=== PATIENT | female | born 1960 | race Caucasian/White ===

== ENCOUNTER 2019-10-17 13:12 | Observation (INO) | payer OTHER ==
[~2019-10-17] VITALS: Ht 160 cm; Wt 45.2 kg
[2019-10-17 14:07] LABS: BASOPHILS ABSOLUTE AUTO 0.02 K/mm3 (0.00-0.23); BASOPHILS PERCENT AUTO 0 % (0-2); EOSINOPHILS ABSOLUTE AUTO 0.23 K/mm3 (0.00-0.68); EOSINOPHILS PERCENT AUTO 3 % (0-6); Hematocrit 19.2 % (33.0-51.0); IMMATURE GRAN PERCENT AUTO 1 % (0-1); LYMPHOCYTES ABSOLUTE AUTO 2.76 K/mm3 (0.84-5.20); LYMPHOCYTES PERCENT AUTO 31 % (21-46); MONOCYTES ABSOLUTE AUTO 1.02 K/mm3 (0.16-1.47); MONOCYTES PERCENT AUTO 12 % (4-13); Mean Corpuscular HGB 18.6 pg (26.0-34.0); Mean Corpuscular Volume 74 fL (80-100); Mean Platelet Volume 9.5 fL (9.1-12.4); NEUTROPHILS PERCENT AUTO 53 % (41-73); NRBC Auto 2.3 /100 WBC (0.0-0.2); Platelet Count 808 K/mm3 (150-400); RDW Coefficient Variation 30.4 % (11.7-14.2); RDW Standard Deviation 71.7 fL (35.1-46.3); Red Blood Cell Count 2.58 M/mm3 (3.80-5.20); White Blood Cell Count 8.83 K/mm3 (4.00-11.30)
[2019-10-17 14:25] LABS: Alanine Aminotransfer (ALT/SGP 23 U/L (12-78); Albumin, Blood 3.5 g/dL (3.4-5.0); Alk Phos 65 U/L (50-136); Anion Gap 6 mmol/L (6-16); Aspartate Aminotrans (AST/SGOT 17 U/L (12-37); Bilirubin, Total 0.2 mg/dL (0.1-1.0); Blood Urea Nitrogen 18 mg/dL (8-24); Bun/Creatinine Ratio 27.1 (12.0-20.0); CO2, Blood 26 mmol/L (21-32); Calcium, Blood 8.5 mg/dL (8.5-10.1); Chloride, Blood 108 mmol/L (98-108); Creatinine, Blood 0.66 mg/dL (0.40-1.00); Globulin, Blood 3.6 g/dL (2.2-4.0); Glomerular Filtration Rate >60 (60-); Glucose, Blood 115 mg/dL (70-99); Potassium, Blood 3.9 mmol/L (3.5-5.5); Sodium, Blood 140 mmol/L (136-145); Total Protein, Blood 7.1 g/dL (6.4-8.2)
[2019-10-17 14:30] LABS: Hemoglobin 4.8 g/dL (11.5-16.0)
[2019-10-17] MEDS ORDERED: Synthroid200 MCG PO (15:32)
[2019-10-17] MEDS ORDERED: DULOXETINE HCL60 M1 PO (15:32)
[2019-10-17] MEDS ORDERED: Neurontin800 MG PO (15:33)
[2019-10-17] MEDS ORDERED: MORPHINE SULFAT15 M1 PO (15:33)
[2019-10-17] MEDS ORDERED: METAXALONE800 M1 PO (15:34)
[2019-10-17] MEDS ORDERED: OMEP20ER PO (15:34)
[2019-10-17] MEDS ORDERED: REMERON30 MG PO (15:34)
--- NOTE | 2019-10-17 18:28 | NUR ---
ASSUME CARE: PT ARRIVED FROM [facility] ([facility] VIA STRETCHER, REPORT RECEIVED FROM JANEEN RN. PT WAS ABLE TO STAND TRANSFER TO BED. PT IS HERE FOR ACUTE BLOOD LOSS ANEMIA HGB AT 4.8, CURRENTLY TREANSFUSING 2ND PRBC. HRR NSR ON THE 80'S, BP SYSTOLIC 140'S, SATS ABOVE 97% ON 1L OF O2, AFEBRILE. PT IS ALERT AND ORIENTED X4. DENIES CHEST PAIN, LUNGS INSPIRATORU COARSE DIMINISHED ON THE BASES PT WITH HX OF COPD, PT REPORTS SOB WITH EXERTION AT HOME. GI WAS CONSULTED PLAN TO DO ENDOSCOPY IN AM, PT ON CLEAR LIQUID DIET. ALSO DISCUSSED CODE STATUS WITH PT AND DAUGHTER PALLIATIVE CARE CONSULT ORDERED, DAUGHTER AGREEABLE WITH THIS PLAN. PT CURRENTLY RESTING IN BED, CALL LIGHTS WITHIN REACH WILL MONITOR
[2019-10-17 19:11] LABS: Hematocrit 28.2 % (33.0-51.0); Hemoglobin 7.8 g/dL (11.5-16.0)
[2019-10-18 04:15] LABS: Hematocrit 30.6 % (33.0-51.0); Hemoglobin 8.4 g/dL (11.5-16.0); Mean Corpuscular HGB 20.7 pg (26.0-34.0); Mean Corpuscular HGB Conc 27.5 g/dL (31.5-36.5); Mean Corpuscular Volume 76 fL (80-100); Mean Platelet Volume 9.1 fL (9.1-12.4); NRBC ABSOLUTE 0.15 K/mm3 (0.00-0.02); NRBC Auto 1.7 /100 WBC (0.0-0.2); Platelet Count 871 K/mm3 (150-400); RDW Coefficient Variation 27.2 % (11.7-14.2); RDW Standard Deviation 66.4 fL (35.1-46.3); Red Blood Cell Count 4.05 M/mm3 (3.80-5.20); White Blood Cell Count 9.06 K/mm3 (4.00-11.30)
[2019-10-18 04:41] LABS: Anion Gap 3 mmol/L (6-16); Blood Urea Nitrogen 11 mg/dL (8-24); Bun/Creatinine Ratio 17.6 (12.0-20.0); CO2, Blood 29 mmol/L (21-32); Calcium, Blood 8.6 mg/dL (8.5-10.1); Chloride, Blood 109 mmol/L (98-108); Creatinine, Blood 0.63 mg/dL (0.40-1.00); Glomerular Filtration Rate >60 (60-); Glucose, Blood 95 mg/dL (70-99); Potassium, Blood 4.2 mmol/L (3.5-5.5); Sodium, Blood 141 mmol/L (136-145)
--- NOTE | 2019-10-18 06:24 | NUR ---
SHIFT SUMMARY Dr Saenz at bedside last night with updated plan of care. Pt to be NPO at 0900 for Upper and Lower scope. CL until 0900. Golytely started and pt with bowel movements throughout night - clearing in color. Pt is ind and alert and oriented. VSS. No isatu blood in stool. pt able to express needs, no acute changes from intial shift assessment, lungs coarse but clearing. no changes in oxygen demand. Will continue to monitor.
--- NOTE | 2019-10-18 09:53 | NUR ---
PT IS SUPPOSED TO GET ENDOSCOPY AND COLONOSCOPY DONE TODAY. PT WAS ON CLEAR LIQUID DIET SINCE YESTERDAY FOR THE PROCEDURE HOWEVER PT HAD RECEIVED A FULL LIQUID DIET TRAY THIS MORNING PT WAS INSTRUCTED THAT SHE CAN HAVE BREAKFAST BUT NOTHING TO EAT AFTER 0900AM ORDERED FOR THE PROCEDURE. THIS RN CALLED DR ALFARO ABOUT THIS ISSUE PT WAS SUPPOSED TO BE ON CLEAR LIQUID, PROCEDURE HAS TO BE CANCELLED AND RESCHEDULED TOMORROW. PT WAS UPSET REQUESTING TO JUST GO HOME AND HAVE IT DONE OUT PATIENT. THIS ISSUE WAS DISCUSSED WITH THE CHARGE NURSE NOTED THAT THERE WERE [facility] ISSUE GOING REGARDING THIS MATTER. DR WELLS WAS ALSO MADE AWARE FROM HIS STANDPOINT PT IS STABLE TO GO HOME AND GET THE PROCEDURE DONE OUTPATIENT IF DR ALFARO IS AGREEABLE. DR ALFARO WAS ALSO INFORMED ALSO AGREEABLE PT IS NOT HAVING ANY ACTIVE BLEEDING AND H&H IS STABLE AND THAT PT CAN DO THE PROCEDURE OUTPATIENT.
--- NOTE | 2019-10-18 12:34 | NUR ---
PT DISCHARGED TODAY DECIDED TO GET ENDO/COLONOSCOPY DONE OUTPATIENT. VITALS HAS BEEN STABLE HRR NSR 80'S, BP SYSTOLIC 130'S, SATS ABOVE 95% ON ROOMAIR, AFEBRILE. LAST HGB WAS 8.4 PT TO FOLLOW UP WITH PCP WITHIN A WEEK AND GET CBC DONE WELL. PT TO CALL DR. ALFARO'S OFFICE FOR PROCEDURE ARRANGEMENT. DISCHARGE MEDICATION AND INSTRUCTION DISCLOSED WITH PT, PT VERBALIZED UNDERSTANDING. ALL BELONGINGS SENT WITH PT, PT ACCOMPANIED BY FORMATION FRACTURING OPERATOR AMBULATED FOR TRANSPORT
[2019-10-31] MEDS ORDERED: BREO ELLIPTA 21 EAC1 (09:27)
[2019-10-31] MEDS ORDERED: IPRAT-ALBUT 0.5-3 ML (09:27)
[2019-10-31] MEDS ORDERED: ASMANEX HFA13 G6 (09:28)
== END 2019-10-18 12:19 | disposition home or self-care (01) ==
LOC: ER 13:12 → PCU 13:13
PROVIDERS: Emergency Medicine; ADMIT Internal Medicine
DX: D62 Acute posthemorrhagic anemia (principal); E03.9 Hypothyroidism, unspecified; R63.6 Underweight; F11.90 Opioid use, unspecified, uncomplicated; R59.0 Localized enlarged lymph nodes; J47.9 Bronchiectasis, uncomplicated; J43.9 Emphysema, unspecified; K44.9 Diaphragmatic hernia without obstruction or gangrene; R10.13 Epigastric pain; K21.9 Gastro-esophageal reflux disease without esophagitis; R19.5 Other fecal abnormalities; G89.4 Chronic pain syndrome; Z87.891 Personal history of nicotine dependence; Z79.899 Other long term (current) drug therapy; Z68.1 Body mass index [BMI] 19.9 or less, adult
CPT/HCPCS: 36415; 36430; 71250; 80048; 80053; 82272; 85014; 85018; 85025; 85027; 86850; 86900; 86901; 86923; 93005; 93010; 94640; 94664; 94760; 96374; 96375; 96376; 99285-25; C9113; G0378; J7030; P9016

== ENCOUNTER 2020-01-23 09:46 | Day surgery (SDC) | payer OTHER ==
[~2020-01-23] VITALS: Ht 160 cm; Wt 45.8 kg
[~2020-01-23 09:46] MED LIST: ASMANEX HFA13 G6; BREO ELLIPTA 21 EAC1; DULOXETINE HCL60 M1 PO; IPRAT-ALBUT 0.5-3 ML; METAXALONE800 M1 PO; MORPHINE SULFAT15 M1 PO; Neurontin800 MG PO; OMEP20ER PO; REMERON30 MG PO; Synthroid200 MCG PO
== END 2020-01-23 11:33 | disposition home or self-care (01) ==
LOC: ORSCSDS 09:46
PROVIDERS: Internal Medicine Gastroenterology
PROC: 0DB78ZX Excision of Stomach, Pylorus, Via Natural or Artificial Opening Endoscopic, Diagnostic (ICD-10-PCS; principal; 2020-01-23 11:00)
DX: K25.9 Gastric ulcer, unspecified as acute or chronic, without hemorrhage or perforation (principal); K44.9 Diaphragmatic hernia without obstruction or gangrene; J44.9 Chronic obstructive pulmonary disease, unspecified; Z87.891 Personal history of nicotine dependence; Z79.899 Other long term (current) drug therapy; M79.7 Fibromyalgia
CPT/HCPCS: 88305; 88342; J2704; J7120

== ENCOUNTER → 2021-01-02 | Outpatient (CLI) | payer BC | END | disposition home or self-care (01) | LOC: LAB SHORT 15:06 → LAB 15:06 | DX: J47.9 Bronchiectasis, uncomplicated (principal) | CPT/HCPCS: 87015; 87116; 87206 ==

== ENCOUNTER → 2021-04-20 | Outpatient (CLI) | payer BC | END | disposition home or self-care (01) | LOC: LAB SHORT 11:00 → LAB 11:00 | DX: J47.9 Bronchiectasis, uncomplicated (principal) | CPT/HCPCS: 87015; 87116; 87206 ==

== ENCOUNTER → 2021-05-27 | Outpatient (CLI) | payer BC | END | disposition home or self-care (01) | LOC: LAB SHORT 14:39 → LAB 14:39 | DX: L08.9 Local infection of the skin and subcutaneous tissue, unspecified (principal) | CPT/HCPCS: 87070; 87075; 87205 ==

== ENCOUNTER → 2021-05-29 | Outpatient (CLI) | payer BC ==
[2021-05-29 10:15] LABS: BASOPHILS ABSOLUTE AUTO 0.05 K/mm3 (0.00-0.23); BASOPHILS PERCENT AUTO 0 % (0-2); EOSINOPHILS ABSOLUTE AUTO 0.24 K/mm3 (0.00-0.68); EOSINOPHILS PERCENT AUTO 1 % (0-6); Hematocrit 44.5 % (33.0-51.0); Hemoglobin 14.3 g/dL (11.5-16.0); IMMATURE GRAN ABSOLUTE AUTO 0.07 K/mm3 (0.00-0.10); IMMATURE GRAN PERCENT AUTO 0 % (0-1); LYMPHOCYTES ABSOLUTE AUTO 1.68 K/mm3 (0.84-5.20); LYMPHOCYTES PERCENT AUTO 10 % (21-46); MONOCYTES PERCENT AUTO 6 % (4-13); Mean Corpuscular HGB 33.7 pg (26.0-34.0); Mean Corpuscular HGB Conc 32.1 g/dL (31.5-36.5); Mean Corpuscular Volume 105 fL (80-100); Mean Platelet Volume 9.2 fL (9.1-12.4); NEUTROPHILS ABSOLUTE AUTO 14.11 K/mm3 (1.96-9.15); NEUTROPHILS PERCENT AUTO 82 % (41-73); Platelet Count 468 K/mm3 (150-400); RDW Coefficient Variation 12.1 % (11.7-14.2); RDW Standard Deviation 47.2 fL (35.1-46.3); Red Blood Cell Count 4.24 M/mm3 (3.80-5.20); White Blood Cell Count 17.25 K/mm3 (4.00-11.30)
[2021-05-29 10:23] LABS: Alanine Aminotransfer (ALT/SGP 33 U/L (12-78); Albumin, Blood 3.5 g/dL (3.4-5.0); Albumin/Globulin Ratio 0.8 (0.8-1.8); Alk Phos 119 U/L (40-126); Anion Gap 10 mmol/L (6-16); Aspartate Aminotrans (AST/SGOT 26 U/L (12-37); Bilirubin, Total 0.2 mg/dL (0.1-1.0); Blood Urea Nitrogen 22 mg/dL (8-24); Bun/Creatinine Ratio 39.3 (12.0-20.0); CO2, Blood 30 mmol/L (21-32); Calcium, Blood 9.6 mg/dL (8.5-10.1); Chloride, Blood 99 mmol/L (98-108); Creatinine, Blood 0.56 mg/dL (0.40-1.00); Globulin, Blood 4.6 g/dL (2.2-4.0); Glomerular Filtration Rate >60 (60-); Glucose, Blood 110 mg/dL (70-99); Potassium, Blood 4.5 mmol/L (3.5-5.5); Sodium, Blood 139 mmol/L (136-145); Total Protein, Blood 8.1 g/dL (6.4-8.2)
== END ==
LOC: LAB SHORT 10:09 → LAB 10:09
PROVIDERS: Physician Assistant
DX: L08.9 Local infection of the skin and subcutaneous tissue, unspecified (principal)
CPT/HCPCS: 80053; 85025

== ENCOUNTER 2021-06-15 01:21 | Day surgery (SDC) | payer BC | END 2021-06-15 23:06 | disposition home or self-care (01) | LOC: WOUND 01:21 | DX: L03.114 Cellulitis of left upper limb (principal); Z87.891 Personal history of nicotine dependence | CPT/HCPCS: A9270; G0463 ==

== ENCOUNTER 2021-06-22 00:56 | Day surgery (SDC) | payer BC | END 2021-06-22 23:07 | disposition home or self-care (01) | LOC: WOUND 00:56 | DX: L03.012 Cellulitis of left finger (principal) | CPT/HCPCS: G0463 ==

== ENCOUNTER 2021-07-06 01:51 | Day surgery (SDC) | payer BC | END 2021-07-06 22:43 | disposition home or self-care (01) | LOC: WOUND 01:51 | DX: L03.012 Cellulitis of left finger (principal) | CPT/HCPCS: G0463 ==

== ENCOUNTER 2021-11-10 14:22 | Day surgery (SDC) | payer BC ==
[~2021-11-10] VITALS: Ht 157.5 cm; Wt 44.8 kg
[2021-11-10] MEDS ORDERED: SUCR1 (14:43)
--- NOTE | 2021-11-10 16:05 | NUR ---
11/10/21 6131 Mercedes Whitney PT. VERBALIZES USING O2 NEEDED AT HOME. PT. USES NOC O2. PT. VERBALIZES USING HER INHALER & NEBULIZER TODAY.
--- NOTE | 2021-11-10 16:37 | NUR ---
11/10/21 1637 Mercedes Whitney BALLOON DIALATION TO 18MM & 20MM.
== END 2021-11-10 17:30 | disposition home or self-care (01) ==
LOC: ORSCSDS 14:22
PROVIDERS: Internal Medicine Gastroenterology
PROC: 0D758ZZ Dilation of Esophagus, Via Natural or Artificial Opening Endoscopic (ICD-10-PCS; principal; 2021-11-10 15:15)
DX: R13.10 Dysphagia, unspecified (principal); D50.9 Iron deficiency anemia, unspecified; K22.2 Esophageal obstruction; K44.9 Diaphragmatic hernia without obstruction or gangrene; I10 Essential (primary) hypertension; J44.9 Chronic obstructive pulmonary disease, unspecified; Z87.891 Personal history of nicotine dependence; K21.9 Gastro-esophageal reflux disease without esophagitis; E03.9 Hypothyroidism, unspecified; Z99.81 Dependence on supplemental oxygen; Z79.899 Other long term (current) drug therapy
CPT/HCPCS: C1726; J0330; J0461; J2405; J2704; J7120

== ENCOUNTER → 2022-01-04 | Outpatient (CLI) | payer BC ==
[~2022-01-04] MED LIST changes: +SUCR1
== END ==
LOC: LAB 10:49 → LAB SHORT 10:49
DX: J47.9 Bronchiectasis, uncomplicated (principal)
CPT/HCPCS: 87015; 87116; 87206

== ENCOUNTER → 2022-01-22 | Outpatient (CLI) | payer BC | END | disposition home or self-care (01) | LOC: LAB SHORT 15:05 → LAB 15:05 | DX: J47.9 Bronchiectasis, uncomplicated (principal) | CPT/HCPCS: 87015; 87116; 87206 ==

== ENCOUNTER → 2022-05-10 | Outpatient (CLI) | payer BC ==
[~2022-05-10] MED LIST changes: +MIRT30 PO; -REMERON30 MG PO
== END ==
LOC: LAB SHORT 13:30 → LAB 13:30
DX: A43.0 Pulmonary nocardiosis (principal)
CPT/HCPCS: 87015; 87116; 87206

== ENCOUNTER → 2022-05-17 | Outpatient (CLI) | payer BC ==
[~2022-05-17] MED LIST changes: -MIRT30 PO; +REMERON30 MG PO
== END | disposition home or self-care (01) ==
LOC: LAB SHORT 14:15 → LAB 14:15
DX: A43.0 Pulmonary nocardiosis (principal); J47.9 Bronchiectasis, uncomplicated
CPT/HCPCS: 87070; 87077; 87186; 87205

== ENCOUNTER 2022-06-11 01:44 | Day surgery (SDC) | payer BC ==
[~2022-06-11 01:44] MED LIST changes: +MIRT30 PO; -REMERON30 MG PO
== END 2022-06-11 14:10 | disposition home or self-care (01) ==
LOC: ATC 01:44
DX: Z45.2 Encounter for adjustment and management of vascular access device (principal); A49.8 Other bacterial infections of unspecified site
CPT/HCPCS: 36569; C1751

== ENCOUNTER → 2023-02-07 | Outpatient (CLI) | payer BC | LOC: LAB SHORT 13:41 → LAB 13:41 | DX: J47.9 Bronchiectasis, uncomplicated (principal) | CPT/HCPCS: 87070; 87077; 87186; 87205 ==

== ENCOUNTER 2023-05-19 10:12 | Day surgery (SDC) | payer MEDICARE ==
[2023-05-19 15:45] VITALS: BP 149/95
== END 2023-05-19 16:40 | disposition home or self-care (01) ==
LOC: ATC 10:12
DX: J15.1 Pneumonia due to Pseudomonas (principal); J44.9 Chronic obstructive pulmonary disease, unspecified; Z79.899 Other long term (current) drug therapy
CPT/HCPCS: 36569; C1751

== ENCOUNTER 2023-07-15 06:20 | Observation (INO) | payer MEDICARE ==
[2023-07-15] VITALS (19 sets, daily range): BP systolic 123–141; BP diastolic 72–96
[~2023-07-15] VITALS: Ht 160 cm; Wt 46.9 kg
[~2023-07-15 06:20] MED LIST changes: -BREO ELLIPTA 21 EAC1; +BREO ELLIPTA 21 EAC1 INH; +BUDESONIDE0.5 MG/2 M INH; +DEXTROSE IV; -IPRAT-ALBUT 0.5-3 ML; +IPRAT-ALBUT 0.5-3 ML NEB; +LEVSOD100 PO; +Lactated Ringer's 1,000 ML IV SCH; +OXYGEN; -Synthroid200 MCG PO
[2023-07-15] MEDS ORDERED: TRAZ50 PO (06:40)
[2023-07-15] MEDS ORDERED: TOBRAMYCIN300 MG/10 INH (06:45)
[2023-07-15] MEDS ORDERED: Midazolam HCl 1MG / ML 2ML Vial IV ONE (07:15)
[2023-07-15] MEDS ORDERED: Ipratropium/Albuterol SulF 2.5-0.5MG/3 ML Amp INH ONE (07:15)
[2023-07-15] MEDS ORDERED: Bupivacaine 0.5% HCl 5 MG/ML 30MLVIAL ONE (07:21)
[2023-07-15] MEDS ORDERED: Ketorolac Tromethamine 30mg Vial ONE (07:21)
[2023-07-15] MEDS ORDERED: propofoL 20 ML IV ONE (07:21)
[2023-07-15] MEDS ORDERED: FentaNYL Citrate 50 MCG/ML 2 ML Injection ONE ×3 (07:21→10:21)
[2023-07-15] MEDS ORDERED: Dexamethasone Sod Phos 10 MG/ML 1ML VIAL ONE (07:21)
[2023-07-15] MEDS ORDERED: Ondansetron HCl 2 MG / ML 2ML Vial ONE (07:21)
[2023-07-15] MEDS ORDERED: Rocuronium Bromide 10 MG/ML 5ML Injection IV ONE ×2 (07:21→08:31)
[2023-07-15] MEDS ORDERED: CeFAZolin Sodium 2,000 MG in NS 100 ML IV SCH (07:25)
[2023-07-15] MEDS ORDERED: Labetalol HCL 5 MG/ML 4ML Injection (Single Dose) ONE (08:07)
[2023-07-15] MEDS ORDERED: Sugammadex Sodium 200 MG/2ML SDV (100 MG/ML) ONE (09:40)
[2023-07-15] MEDS ORDERED: Albuterol 2.5 MG/3 ML VIAL ONE ×2 (09:55→10:17)
[2023-07-15] MEDS ORDERED: HYDROmorphone HCl/Pf 1MG SYR IV PRN (10:20)
[2023-07-15] MEDS ORDERED: Magnesium Hydroxide Conc 10 ML UDC PO PRN (10:20)
[2023-07-15] MEDS ORDERED: Acetaminophen 325 MG TABLET PO PRN (10:25)
[2023-07-15] MEDS ORDERED: Ondansetron HCl 2 MG / ML 2ML Vial IV PRN (10:25)
[2023-07-15] MEDS ORDERED: Lactated Ringer's 1,000 ML IV SCH (10:25)
[2023-07-15] MEDS ORDERED: OxyCODONE HCL 5 MG TAB PO PRN (10:25)
[2023-07-15] MEDS ORDERED: Morphine Sulfate IR 15 MG Tab PO PRN (15:05)
[2023-07-15] MEDS ORDERED: Budesonide 0.5 MG/2 ML RESP INH SCH (15:10)
[2023-07-15] MEDS ORDERED: TRAZ100 PO (15:23)
[2023-07-15] MEDS ORDERED: Albuterol 2.5 MG/3 ML VIAL INH PRN (17:20)
--- NOTE | 2023-07-15 17:57 | NUR ---
SHIFT SUMMARY PT TO FLOOR POST KRUPA FUNDOPLICATION. PT IS UP AND VOIDING SPONTANEOUSLEY, DENIES PASSING FLATUS. PT ON DROPLET ISOLATION FOR BACTERIA IN SPUTUM AND MULTI DRUG RESITANT BACTERIA. ON 2-3L NASAL CANNULA, BASELINE, SATS REMAIN ABOVE 92%. LAP SITES C/D/I & OPEN TO AIR. VSS AT BASELINE. MEDICATED FOR PAIN PER EMAR, TOLERATING WELL. CALL LIGHT IN REACH.
[2023-07-15] MEDS ORDERED: Sennosides 8.6 MG Tab PO SCH (21:00)
[2023-07-15] MEDS ORDERED: Gabapentin 400 MG Cap PO SCH (21:00)
[2023-07-15] MEDS ORDERED: Docusate Sodium 100 MG Cap PO SCH (21:00)
[2023-07-15] MEDS ORDERED: TraZODone HCl 50 MG Tab PO SCH (21:00)
[2023-07-16 00:12] VITALS: BP 100/55
[2023-07-16 04:25] VITALS: BP 137/74
[2023-07-16 05:23] LABS: Hematocrit 34.8 % (33.0-51.0); Hemoglobin 10.9 g/dL (11.5-16.0); Mean Corpuscular HGB 32.2 pg (26.0-34.0); Mean Corpuscular HGB Conc 31.3 g/dL (31.5-36.5); Mean Corpuscular Volume 103 fL (80-100); Mean Platelet Volume 8.9 fL (9.1-12.4); Platelet Count 337 K/mm3 (150-400); RDW Coefficient Variation 12.7 % (11.7-14.2); RDW Standard Deviation 47.8 fL (35.1-46.3); Red Blood Cell Count 3.39 M/mm3 (3.80-5.20); White Blood Cell Count 6.66 K/mm3 (4.00-11.30)
--- NOTE | 2023-07-16 05:40 | NUR ---
SHIFT SUMMARY NOC. PT POD 1 FOR FUNDOPLICATION. PT MEDICATED FOR PAIN PER EMAR WITH REPORTED RELIEF OF SX. PT VOIDING, TOLERATING CLEAR LIQUIDS WITHOUT NAUSEA. LAP SITES X4 C/D/I. PT AMBULATING WELL. PT RESTED WITH EYES CLOSED AND CALL LIGHT IN REACH.
[2023-07-16] MEDS ORDERED: Levothyroxine Sodium 0.15 MG Tab PO SCH (06:00)
[2023-07-16 07:21] VITALS: BP 131/85
[2023-07-16] MEDS ORDERED: DULoxetine HCL 60 MG Capsule DR PO SCH (09:00)
[2023-07-16] MEDS ORDERED: OXYC5 PO (13:06)
--- NOTE | 2023-07-16 13:50 | NUR ---
DISCHARGE DC'D HOME, DC INSTRUCTIONS GIVEN, VERBALIZED UNDERSTANDING, IV DC'D, CATH INTACT, BELONGINGS GIVEN TO PT AND .
== END 2023-07-16 13:30 | disposition home or self-care (01) ==
LOC: ORSCMMR 06:20 → ORD 07:30 → ORSCMMR 07:30 → SURS 10:17
PROVIDERS: ADMIT Surgery
PROC: 0BQT3ZZ Repair Diaphragm, Percutaneous Approach (ICD-10-PCS; principal; 2023-07-15 07:30)
DX: K44.9 Diaphragmatic hernia without obstruction or gangrene (principal); K21.9 Gastro-esophageal reflux disease without esophagitis; K76.0 Fatty (change of) liver, not elsewhere classified; J96.11 Chronic respiratory failure with hypoxia; Z99.81 Dependence on supplemental oxygen; Z79.899 Other long term (current) drug therapy
CPT/HCPCS: 36415; 85027; 94640; 94664; 94762; A9270; J0690; J1100; J1885; J2250; J2405; J2704; J3010; J7120

== ENCOUNTER → 2024-04-02 | Outpatient (CLI) | payer OTHER ==
[~2024-04-02] MED LIST changes: -Lactated Ringer's 1,000 ML IV SCH; +OXYC5 PO; +TOBRAMYCIN300 MG/10 INH; +TRAZ100 PO; +TRAZ50 PO
== END ==
LOC: LAB 11:45 → LAB SHORT 11:45
DX: Z22.39 Carrier of other specified bacterial diseases (principal)
CPT/HCPCS: 87070; 87077; 87186; 87205

== ENCOUNTER 2024-04-06 12:45 | Day surgery (SDC) | payer OTHER ==
[2024-04-06 16:30] VITALS: BP 136/82
== END 2024-04-06 17:28 | disposition home or self-care (01) ==
LOC: ATC 12:45
DX: Z45.2 Encounter for adjustment and management of vascular access device (principal); J47.0 Bronchiectasis with acute lower respiratory infection; B96.5 Pseudomonas (aeruginosa) (mallei) (pseudomallei) as the cause of diseases classified elsewhere; E03.9 Hypothyroidism, unspecified; M79.7 Fibromyalgia; J44.9 Chronic obstructive pulmonary disease, unspecified; Z79.890 Hormone replacement therapy; Z79.899 Other long term (current) drug therapy
CPT/HCPCS: 36573; C1751

== ENCOUNTER 2024-04-12 05:22 | Day surgery (SDC) | payer OTHER ==
[2024-04-12] MEDS ORDERED: SODIUM CHLORIDE IV SCH (07:42)
[2024-04-12] MEDS ORDERED: MEROPENEM IV SCH (07:42)
[2024-04-12 08:48] VITALS: BP 147/87
== END 2024-04-12 09:20 | disposition home or self-care (01) ==
LOC: ATC 05:22
DX: J47.0 Bronchiectasis with acute lower respiratory infection (principal); B96.5 Pseudomonas (aeruginosa) (mallei) (pseudomallei) as the cause of diseases classified elsewhere; J44.9 Chronic obstructive pulmonary disease, unspecified; E03.9 Hypothyroidism, unspecified; M79.7 Fibromyalgia; Z79.899 Other long term (current) drug therapy
CPT/HCPCS: 96365; J2185; J7050

== ENCOUNTER 2024-04-13 01:38 | Day surgery (SDC) | payer OTHER ==
[2024-04-13] MEDS ORDERED: SODIUM CHLORIDE IV SCH (06:00)
[2024-04-13] MEDS ORDERED: MEROPENEM IV SCH (06:00)
[2024-04-13 09:42] VITALS: BP 151/84
--- NOTE | 2024-04-18 13:36 | NUR ---
MEROPENEM COMPLETED AT 0907.
== END 2024-04-13 09:07 | disposition home or self-care (01) ==
LOC: ATC 01:38
DX: J47.0 Bronchiectasis with acute lower respiratory infection (principal); B96.5 Pseudomonas (aeruginosa) (mallei) (pseudomallei) as the cause of diseases classified elsewhere; E03.9 Hypothyroidism, unspecified; M79.7 Fibromyalgia; Z87.891 Personal history of nicotine dependence; Z79.890 Hormone replacement therapy; Z79.899 Other long term (current) drug therapy
CPT/HCPCS: 96365; J2185; J7050

== ENCOUNTER 2024-04-14 06:17 | Day surgery (SDC) | payer OTHER ==
[2024-04-14] MEDS ORDERED: MEROPENEM IV SCH (07:00)
[2024-04-14] MEDS ORDERED: SODIUM CHLORIDE IV SCH (07:00)
[2024-04-14 08:49] VITALS: BP 126/92
== END 2024-04-14 09:15 | disposition home or self-care (01) ==
LOC: ATC 06:17
DX: J47.0 Bronchiectasis with acute lower respiratory infection (principal); B96.5 Pseudomonas (aeruginosa) (mallei) (pseudomallei) as the cause of diseases classified elsewhere; J44.9 Chronic obstructive pulmonary disease, unspecified
CPT/HCPCS: 96365; J2185; J7050

== ENCOUNTER 2024-04-15 03:14 | Day surgery (SDC) | payer OTHER ==
[2024-04-15] MEDS ORDERED: MEROPENEM IV SCH (06:00)
[2024-04-15] MEDS ORDERED: SODIUM CHLORIDE IV SCH (06:00)
[2024-04-15 08:42] VITALS: BP 153/59
== END 2024-04-15 09:10 | disposition home or self-care (01) ==
LOC: ATC 03:14
DX: A49.8 Other bacterial infections of unspecified site (principal); J47.1 Bronchiectasis with (acute) exacerbation; E03.9 Hypothyroidism, unspecified; J43.9 Emphysema, unspecified; Z87.891 Personal history of nicotine dependence; Z79.899 Other long term (current) drug therapy
CPT/HCPCS: J2185; J7050

== ENCOUNTER 2024-04-16 02:53 | Day surgery (SDC) | payer OTHER ==
[2024-04-16] MEDS ORDERED: MEROPENEM IV SCH (06:00)
[2024-04-16] MEDS ORDERED: SODIUM CHLORIDE IV SCH (06:00)
[2024-04-16 08:25] VITALS: BP 121/83
== END 2024-04-16 09:06 | disposition home or self-care (01) ==
LOC: ATC 02:53
DX: J47.0 Bronchiectasis with acute lower respiratory infection (principal); B96.5 Pseudomonas (aeruginosa) (mallei) (pseudomallei) as the cause of diseases classified elsewhere; E03.9 Hypothyroidism, unspecified; J44.9 Chronic obstructive pulmonary disease, unspecified
CPT/HCPCS: 96365; J2185; J7050

== ENCOUNTER 2024-04-17 08:19 | Day surgery (SDC) | payer OTHER ==
[~2024-04-17 08:19] MED LIST changes: +MEROPENEM IV SCH; +SODIUM CHLORIDE IV SCH
[2024-04-17 08:57] VITALS: BP 129/95
== END 2024-04-17 09:20 | disposition home or self-care (01) ==
LOC: ATC 08:19
DX: J47.0 Bronchiectasis with acute lower respiratory infection (principal); B96.5 Pseudomonas (aeruginosa) (mallei) (pseudomallei) as the cause of diseases classified elsewhere; J44.9 Chronic obstructive pulmonary disease, unspecified
CPT/HCPCS: 96365; J2185; J7050

== ENCOUNTER 2024-04-18 05:31 | Day surgery (SDC) | payer OTHER ==
[~2024-04-18 05:31] MED LIST changes: -MEROPENEM IV SCH; -SODIUM CHLORIDE IV SCH
[2024-04-18] MEDS ORDERED: SODIUM CHLORIDE IV SCH (06:00)
[2024-04-18] MEDS ORDERED: MEROPENEM IV SCH (06:00)
[2024-04-18 08:20] VITALS: BP 135/84
== END 2024-04-18 09:10 | disposition home or self-care (01) ==
LOC: ATC 05:31
DX: J47.0 Bronchiectasis with acute lower respiratory infection (principal); B96.5 Pseudomonas (aeruginosa) (mallei) (pseudomallei) as the cause of diseases classified elsewhere; J44.9 Chronic obstructive pulmonary disease, unspecified
CPT/HCPCS: 96365; J2185; J7050

== ENCOUNTER 2024-04-19 05:36 | Day surgery (SDC) | payer OTHER ==
[2024-04-19] MEDS ORDERED: SODIUM CHLORIDE IV SCH (06:00)
[2024-04-19] MEDS ORDERED: MEROPENEM IV SCH (06:00)
[2024-04-19 08:29] VITALS: BP 138/97
== END 2024-04-19 08:50 | disposition home or self-care (01) ==
LOC: ATC 05:36
DX: J47.0 Bronchiectasis with acute lower respiratory infection (principal); B96.5 Pseudomonas (aeruginosa) (mallei) (pseudomallei) as the cause of diseases classified elsewhere; M79.7 Fibromyalgia; E03.9 Hypothyroidism, unspecified; Z87.891 Personal history of nicotine dependence; Z79.890 Hormone replacement therapy; Z79.899 Other long term (current) drug therapy
CPT/HCPCS: 96365; J2185; J7050

== ENCOUNTER 2024-04-20 03:36 | Day surgery (SDC) | payer OTHER ==
[2024-04-20] MEDS ORDERED: MEROPENEM IV SCH (06:00)
[2024-04-20] MEDS ORDERED: SODIUM CHLORIDE IV SCH (06:00)
[2024-04-20 08:40] VITALS: BP 156/91
== END 2024-04-20 09:20 | disposition home or self-care (01) ==
LOC: ATC 03:36
DX: J47.0 Bronchiectasis with acute lower respiratory infection (principal); B96.5 Pseudomonas (aeruginosa) (mallei) (pseudomallei) as the cause of diseases classified elsewhere
CPT/HCPCS: 96365; J2185; J7050

== ENCOUNTER 2024-04-21 06:12 | Day surgery (SDC) | payer OTHER ==
[~2024-04-21 06:12] MED LIST changes: +MEROPENEM IV SCH; +SODIUM CHLORIDE IV SCH
[2024-04-21 08:35] VITALS: BP 116/81
[2024-04-22] MEDS ORDERED: MERREM1 G3 IV (08:41)
== END 2024-04-21 09:10 | disposition home or self-care (01) ==
LOC: ATC 06:12
DX: J47.0 Bronchiectasis with acute lower respiratory infection (principal); B96.5 Pseudomonas (aeruginosa) (mallei) (pseudomallei) as the cause of diseases classified elsewhere
CPT/HCPCS: 96365; J2185; J7050

== ENCOUNTER 2024-04-22 06:45 | Day surgery (SDC) | payer OTHER ==
[2024-04-22 08:38] VITALS: BP 123/69
[2024-04-22] MEDS ORDERED: MERREM1 G3 IV (08:41)
== END 2024-04-22 09:08 | disposition home or self-care (01) ==
LOC: ATC 06:45
DX: A49.8 Other bacterial infections of unspecified site (principal); J47.1 Bronchiectasis with (acute) exacerbation; E03.9 Hypothyroidism, unspecified; Z87.891 Personal history of nicotine dependence; Z79.899 Other long term (current) drug therapy
CPT/HCPCS: 96365; J2185; J7050

== ENCOUNTER 2024-04-23 07:52 | Day surgery (SDC) | payer OTHER ==
[~2024-04-23 07:52] MED LIST changes: +MERREM1 G3 IV
[2024-04-23 08:47] VITALS: BP 145/85
== END 2024-04-23 09:09 | disposition home or self-care (01) ==
LOC: ATC 07:52
DX: J47.0 Bronchiectasis with acute lower respiratory infection (principal); B96.5 Pseudomonas (aeruginosa) (mallei) (pseudomallei) as the cause of diseases classified elsewhere; M79.7 Fibromyalgia; E03.9 Hypothyroidism, unspecified; Z87.891 Personal history of nicotine dependence; Z79.890 Hormone replacement therapy; Z79.899 Other long term (current) drug therapy
CPT/HCPCS: 96374; J2185; J7050

== ENCOUNTER 2024-04-24 01:25 | Day surgery (SDC) | payer OTHER ==
[~2024-04-24 01:25] MED LIST changes: -MEROPENEM IV SCH; -SODIUM CHLORIDE IV SCH
[2024-04-24] MEDS ORDERED: SODIUM CHLORIDE IV SCH (06:00)
[2024-04-24] MEDS ORDERED: MEROPENEM IV SCH (06:00)
[2024-04-24 08:42] VITALS: BP 112/76
== END 2024-04-24 09:03 | disposition home or self-care (01) ==
LOC: ATC 01:25
DX: J47.0 Bronchiectasis with acute lower respiratory infection (principal); B96.5 Pseudomonas (aeruginosa) (mallei) (pseudomallei) as the cause of diseases classified elsewhere; Z87.891 Personal history of nicotine dependence
CPT/HCPCS: 96365; J2185; J7050

== ENCOUNTER 2024-04-25 05:44 | Day surgery (SDC) | payer OTHER ==
[2024-04-25] MEDS ORDERED: MEROPENEM IV SCH (06:55)
[2024-04-25] MEDS ORDERED: SODIUM CHLORIDE IV SCH (06:55)
[2024-04-25 08:34] VITALS: BP 120/91
== END 2024-04-25 09:15 | disposition home or self-care (01) ==
LOC: ATC 05:44
DX: J47.0 Bronchiectasis with acute lower respiratory infection (principal); B96.5 Pseudomonas (aeruginosa) (mallei) (pseudomallei) as the cause of diseases classified elsewhere; M79.7 Fibromyalgia; E03.9 Hypothyroidism, unspecified; Z87.891 Personal history of nicotine dependence
CPT/HCPCS: 96365; J2185; J7050

== ENCOUNTER → 2024-07-11 | Outpatient (CLI) | payer OTHER | LOC: LAB SHORT 11:01 → LAB 11:01 | DX: Z22.39 Carrier of other specified bacterial diseases (principal) | CPT/HCPCS: 87070; 87077; 87186; 87205 ==

== ENCOUNTER 2024-07-18 04:10 | Day surgery (SDC) | payer OTHER ==
[2024-07-18] MEDS ORDERED: MEROPENEM IV SCH (06:00)
[2024-07-18] MEDS ORDERED: SODIUM CHLORIDE IV SCH (06:00)
[2024-07-18 11:48] VITALS: BP 111/72
== END 2024-07-18 12:50 | disposition home or self-care (01) ==
LOC: ATC 04:10
DX: J47.0 Bronchiectasis with acute lower respiratory infection (principal); B96.5 Pseudomonas (aeruginosa) (mallei) (pseudomallei) as the cause of diseases classified elsewhere; J44.9 Chronic obstructive pulmonary disease, unspecified; Z87.891 Personal history of nicotine dependence; Z79.890 Hormone replacement therapy; Z79.899 Other long term (current) drug therapy
CPT/HCPCS: 96365; C1751; J2185

== ENCOUNTER 2024-07-19 01:24 | Day surgery (SDC) | payer OTHER ==
[2024-07-19] MEDS ORDERED: MEROPENEM IV SCH (06:00)
[2024-07-19] MEDS ORDERED: SODIUM CHLORIDE IV SCH (06:00)
[2024-07-19 11:35] VITALS: BP 120/70
== END 2024-07-19 12:14 | disposition home or self-care (01) ==
LOC: ATC 01:24
DX: Z45.9 Encounter for adjustment and management of unspecified implanted device (principal); B96.5 Pseudomonas (aeruginosa) (mallei) (pseudomallei) as the cause of diseases classified elsewhere; J44.9 Chronic obstructive pulmonary disease, unspecified; J47.9 Bronchiectasis, uncomplicated
CPT/HCPCS: 96365; J2185

== ENCOUNTER 2024-07-20 03:46 | Day surgery (SDC) | payer OTHER ==
[2024-07-20] MEDS ORDERED: MEROPENEM IV SCH (06:00)
[2024-07-20] MEDS ORDERED: SODIUM CHLORIDE IV SCH (06:00)
[2024-07-20 11:35] VITALS: BP 95/60
== END 2024-07-20 12:03 | disposition home or self-care (01) ==
LOC: ATC 03:46
DX: J47.0 Bronchiectasis with acute lower respiratory infection (principal); B96.5 Pseudomonas (aeruginosa) (mallei) (pseudomallei) as the cause of diseases classified elsewhere; J44.9 Chronic obstructive pulmonary disease, unspecified; Z79.899 Other long term (current) drug therapy
CPT/HCPCS: 96365; J2185

== ENCOUNTER 2024-07-21 02:43 | Day surgery (SDC) | payer OTHER ==
[2024-07-21] MEDS ORDERED: SODIUM CHLORIDE IV SCH (07:00)
[2024-07-21] MEDS ORDERED: MEROPENEM IV SCH (07:00)
[2024-07-21 11:29] VITALS: BP 113/72
== END 2024-07-21 14:53 | disposition home or self-care (01) ==
LOC: ATC 02:43
DX: J47.0 Bronchiectasis with acute lower respiratory infection (principal); B96.5 Pseudomonas (aeruginosa) (mallei) (pseudomallei) as the cause of diseases classified elsewhere; J44.9 Chronic obstructive pulmonary disease, unspecified; Z87.891 Personal history of nicotine dependence; Z79.899 Other long term (current) drug therapy
CPT/HCPCS: 96365; J2185

== ENCOUNTER 2024-07-22 02:28 | Day surgery (SDC) | payer OTHER ==
[~2024-07-22 02:28] MED LIST changes: +MEROPENEM IV SCH; +SODIUM CHLORIDE IV SCH
[2024-07-22 11:33] VITALS: BP 115/73
== END 2024-07-22 11:54 | disposition home or self-care (01) ==
LOC: ATC 02:28
DX: Z45.2 Encounter for adjustment and management of vascular access device (principal); J44.9 Chronic obstructive pulmonary disease, unspecified; B96.5 Pseudomonas (aeruginosa) (mallei) (pseudomallei) as the cause of diseases classified elsewhere; J47.9 Bronchiectasis, uncomplicated
CPT/HCPCS: 96365; J2185

== ENCOUNTER 2024-07-23 05:24 | Day surgery (SDC) | payer OTHER ==
[2024-07-23 11:34] VITALS: BP 112/82
== END 2024-07-23 12:05 | disposition home or self-care (01) ==
LOC: ATC 05:24
DX: B99.9 Unspecified infectious disease (principal); B96.5 Pseudomonas (aeruginosa) (mallei) (pseudomallei) as the cause of diseases classified elsewhere; J44.9 Chronic obstructive pulmonary disease, unspecified; M79.7 Fibromyalgia; E03.9 Hypothyroidism, unspecified; Z79.891 Long term (current) use of opiate analgesic; Z79.890 Hormone replacement therapy; Z79.899 Other long term (current) drug therapy
CPT/HCPCS: 96365; J2185

== ENCOUNTER 2024-07-24 02:55 | Day surgery (SDC) | payer OTHER ==
[~2024-07-24 02:55] MED LIST changes: -MEROPENEM IV SCH; -SODIUM CHLORIDE IV SCH
[2024-07-24] MEDS ORDERED: SODIUM CHLORIDE IV SCH (06:00)
[2024-07-24] MEDS ORDERED: MEROPENEM IV SCH (06:00)
[2024-07-24 11:06] VITALS: BP 130/74
== END 2024-07-24 11:45 | disposition home or self-care (01) ==
LOC: ATC 02:55
DX: B99.9 Unspecified infectious disease (principal); B96.5 Pseudomonas (aeruginosa) (mallei) (pseudomallei) as the cause of diseases classified elsewhere; J44.9 Chronic obstructive pulmonary disease, unspecified; Z87.891 Personal history of nicotine dependence; Z79.890 Hormone replacement therapy; Z79.899 Other long term (current) drug therapy
CPT/HCPCS: 96365; J2185

== ENCOUNTER 2024-07-25 01:57 | Day surgery (SDC) | payer OTHER ==
[2024-07-25] MEDS ORDERED: MEROPENEM IV SCH (06:00)
[2024-07-25] MEDS ORDERED: SODIUM CHLORIDE IV SCH (06:00)
[2024-07-25 11:37] VITALS: BP 117/72
== END 2024-07-25 12:02 | disposition home or self-care (01) ==
LOC: ATC 01:57
DX: B99.9 Unspecified infectious disease (principal); B96.5 Pseudomonas (aeruginosa) (mallei) (pseudomallei) as the cause of diseases classified elsewhere; J44.9 Chronic obstructive pulmonary disease, unspecified; Z87.891 Personal history of nicotine dependence; Z79.890 Hormone replacement therapy; Z79.891 Long term (current) use of opiate analgesic; Z79.899 Other long term (current) drug therapy
CPT/HCPCS: 96365; J2185

== ENCOUNTER 2024-07-26 01:27 | Day surgery (SDC) | payer OTHER ==
[2024-07-26] MEDS ORDERED: SODIUM CHLORIDE IV SCH (06:00)
[2024-07-26] MEDS ORDERED: MEROPENEM IV SCH (06:00)
[2024-07-26 11:23] VITALS: BP 103/77
== END 2024-07-26 11:59 | disposition home or self-care (01) ==
LOC: ATC 01:27
DX: Z45.2 Encounter for adjustment and management of vascular access device (principal); J47.9 Bronchiectasis, uncomplicated; J44.9 Chronic obstructive pulmonary disease, unspecified; Z22.39 Carrier of other specified bacterial diseases; Z87.891 Personal history of nicotine dependence; Z79.899 Other long term (current) drug therapy
CPT/HCPCS: 96365; J2185

== ENCOUNTER 2024-07-27 02:33 | Day surgery (SDC) | payer OTHER ==
[2024-07-27] MEDS ORDERED: MEROPENEM IV SCH (06:00)
[2024-07-27] MEDS ORDERED: SODIUM CHLORIDE IV SCH (06:00)
[2024-07-27 11:28] VITALS: BP 118/73
== END 2024-07-27 12:17 | disposition home or self-care (01) ==
LOC: ATC 02:33
DX: J44.9 Chronic obstructive pulmonary disease, unspecified (principal); B96.5 Pseudomonas (aeruginosa) (mallei) (pseudomallei) as the cause of diseases classified elsewhere; Z79.899 Other long term (current) drug therapy
CPT/HCPCS: 96365; J2185

== ENCOUNTER 2024-07-28 04:42 | Day surgery (SDC) | payer OTHER ==
[2024-07-28] MEDS ORDERED: SODIUM CHLORIDE IV SCH (06:00)
[2024-07-28] MEDS ORDERED: MEROPENEM IV SCH (06:00)
[2024-07-28 11:29] VITALS: BP 118/86
== END 2024-07-28 11:58 | disposition home or self-care (01) ==
LOC: ATC 04:42
DX: Z45.2 Encounter for adjustment and management of vascular access device (principal); J44.9 Chronic obstructive pulmonary disease, unspecified; E03.9 Hypothyroidism, unspecified; Z22.39 Carrier of other specified bacterial diseases; Z87.891 Personal history of nicotine dependence; Z79.899 Other long term (current) drug therapy
CPT/HCPCS: 96365; J2185

== ENCOUNTER 2024-07-29 00:29 | Day surgery (SDC) | payer OTHER ==
[2024-07-29] MEDS ORDERED: MEROPENEM IV SCH (06:00)
[2024-07-29] MEDS ORDERED: SODIUM CHLORIDE IV SCH (06:00)
[2024-07-29 11:38] VITALS: BP 113/73
== END 2024-07-29 12:06 | disposition home or self-care (01) ==
LOC: ATC 00:29
DX: B99.9 Unspecified infectious disease (principal); B96.5 Pseudomonas (aeruginosa) (mallei) (pseudomallei) as the cause of diseases classified elsewhere; J47.9 Bronchiectasis, uncomplicated; Z87.891 Personal history of nicotine dependence; Z79.890 Hormone replacement therapy; Z79.899 Other long term (current) drug therapy
CPT/HCPCS: 96365; J2185

== ENCOUNTER 2024-07-30 05:46 | Day surgery (SDC) | payer OTHER ==
[2024-07-30] MEDS ORDERED: MEROPENEM IV SCH (06:00)
[2024-07-30] MEDS ORDERED: SODIUM CHLORIDE IV SCH (06:00)
[2024-07-30 11:29] VITALS: BP 104/68
== END 2024-07-30 11:59 | disposition home or self-care (01) ==
LOC: ATC 05:46
DX: A49.8 Other bacterial infections of unspecified site (principal); J44.9 Chronic obstructive pulmonary disease, unspecified; J47.9 Bronchiectasis, uncomplicated; Z87.891 Personal history of nicotine dependence; Z79.899 Other long term (current) drug therapy
CPT/HCPCS: 96365; J2185

== ENCOUNTER 2024-07-31 02:50 | Day surgery (SDC) | payer OTHER ==
[2024-07-31] MEDS ORDERED: SODIUM CHLORIDE IV SCH (07:00)
[2024-07-31] MEDS ORDERED: MEROPENEM IV SCH (07:00)
[2024-07-31 11:40] VITALS: BP 121/71
== END 2024-07-31 12:11 | disposition home or self-care (01) ==
LOC: ATC 02:50
DX: Z45.2 Encounter for adjustment and management of vascular access device (principal); B96.5 Pseudomonas (aeruginosa) (mallei) (pseudomallei) as the cause of diseases classified elsewhere; J44.9 Chronic obstructive pulmonary disease, unspecified; E03.9 Hypothyroidism, unspecified; Z22.39 Carrier of other specified bacterial diseases; Z79.899 Other long term (current) drug therapy; Z87.891 Personal history of nicotine dependence; J47.9 Bronchiectasis, uncomplicated; J18.1 Lobar pneumonia, unspecified organism; J98.4 Other disorders of lung; R91.8 Other nonspecific abnormal finding of lung field
CPT/HCPCS: 71250; 96365; J2185

== ENCOUNTER 2024-09-14 03:21 | Day surgery (SDC) | payer OTHER ==
[2024-09-14 08:34] VITALS: BP 139/80
--- NOTE | 2024-09-14 11:18 | NUR ---
PATIENT ARRIVED FOR HER APPOINTMENT THIS MORNING AND REPORTED THAT SHE ONLY WANTED HER LINE PLACED TODAY. SHE REPORTS THAT [facility] WILL BE DIRECTLY ADMITTING HER TODAY FOR IV ANTIBIOTICS AROUND THE CLOCK. [facility] ANTIBIOTIC WAS ALREADY PREPARED FOR HER SO THIS WAS RETURNED TO PHARMACY. POWERGLIDE PLACED AND PATIENT DC'D HOME
[2024-09-14] MEDS ORDERED: ANORO ELLIPTA1 EACH INH (16:13)
[2024-09-14] MEDS ORDERED: ONDA4ODT MM (16:15)
[2024-09-14] MEDS ORDERED: IPRAT-ALBUT 0.5-3 ML INH (16:16)
[2024-09-14] MEDS ORDERED: PRED20 PO (16:31)
[2024-09-14] MEDS ORDERED: STIOLTO RESPIMAT4 G2 INH (17:01)
== END 2024-09-14 08:48 | disposition home or self-care (01) ==
LOC: ATC 03:21
DX: J47.1 Bronchiectasis with (acute) exacerbation (principal); B96.5 Pseudomonas (aeruginosa) (mallei) (pseudomallei) as the cause of diseases classified elsewhere; E03.9 Hypothyroidism, unspecified; F17.210 Nicotine dependence, cigarettes, uncomplicated; Z79.899 Other long term (current) drug therapy
CPT/HCPCS: 99212; C1751

== ENCOUNTER 2024-09-14 10:09 | Inpatient (IN) | payer OTHER ==
[~2024-09-14] VITALS: Ht 157.5 cm; Wt 44.0 kg
[2024-09-14 15:46] VITALS: BP 152/90
[2024-09-14] MEDS ORDERED: ANORO ELLIPTA1 EACH INH (16:13)
[2024-09-14] MEDS ORDERED: cefTAZidime 2,000 MG in NS 100 ML IV ONE (16:15)
[2024-09-14] MEDS ORDERED: ONDA4ODT MM (16:15)
[2024-09-14] MEDS ORDERED: IPRAT-ALBUT 0.5-3 ML INH (16:16)
[2024-09-14] MEDS ORDERED: PRED20 PO (16:31)
[2024-09-14 16:37] LABS: Hematocrit 36.2 % (33.0-51.0); Hemoglobin 11.2 g/dL (11.5-16.0); Mean Corpuscular HGB Conc 30.9 g/dL (31.5-36.5); Mean Corpuscular Volume 95 fL (80-100); NRBC ABSOLUTE 0.00 K/mm3 (0.00-0.02); NRBC Auto 0.0 /100 WBC (0.0-0.2); Platelet Count 439 K/mm3 (150-400); RDW Coefficient Variation 13.7 % (11.7-14.2); RDW Standard Deviation 48.2 fL (35.1-46.3)
[2024-09-14] MEDS ORDERED: NS 250 ML IV PRN (16:50)
[2024-09-14] MEDS ORDERED: STIOLTO RESPIMAT4 G2 INH (17:01)
[2024-09-14 17:07] LABS: Anion Gap 7.0 mmol/L (3-11); Blood Urea Nitrogen 20.0 mg/dL (8-24); CO2, Blood 36.0 mmol/L (21-32); Calcium, Blood 9.4 mg/dL (8.5-10.1); Chloride, Blood 96.0 mmol/L (98-108); Creatinine, Blood 0.44 mg/dL (0.40-1.00); Glucose, Blood 134.0 mg/dL (70-99); Potassium, Blood 4.6 mmol/L (3.5-5.5); Sodium, Blood 134.0 mmol/L (136-145)
[2024-09-14] MEDS ORDERED: Ipratropium/Albuterol SulF 2.5-0.5MG/3 ML Amp INH SCH ×3 (17:10→23:40)
[2024-09-14] MEDS ORDERED: SODIUM CHLORIDE INH SCH (17:45)
[2024-09-14] MEDS ORDERED: TOBRAMYCIN INH SCH (17:45)
[2024-09-14] MEDS ORDERED: DULoxetine HCL 60 MG Capsule DR PO SCH (18:00)
--- NOTE | 2024-09-14 18:32 | NUR ---
DIRECT ADMIT FROM HOME. PT REQUIRING IV ANTIBIOTICS THAT WOULD NOT BE POSSIBLE THROUGH THE [facility]. PT IS ALERT AND ORIENTED X4, CALLS APPROPRIATELY ON 3L NC THIS IS HER BASELINE. DENIES CHEST PAIN. OK TO ACCESS PICC LINE, PER DR. DOWNS
[2024-09-14 19:48] VITALS: BP 159/91
[2024-09-14] MEDS ORDERED: Ondansetron 4 MG SoluTab MM PRN (20:00)
[2024-09-14] MEDS ORDERED: Lactobacil 2-S.Thermo-Bifido 1 1 Cap PO SCH (21:00)
[2024-09-14] MEDS ORDERED: ANORO ELLIPTA INH SCH (23:40)
[2024-09-15 05:48] VITALS: BP 142/88
[2024-09-15] MEDS ORDERED: Levothyroxine Sodium 0.15 MG Tab PO SCH (06:00)
--- NOTE | 2024-09-15 06:31 | NUR ---
SHIFT SUMMARY ALERT, STABLE & AMBULATING IN ROOM. VSS. MAINTAINED DROPLET PRECAUTIONS. ON CONTINOUS LONGTERM IV ABX TX. MAINTAINED PICC PATENCY. NO COMPLAINT AT NIGHT AFTER TAKING SLEEP PILL BUT WHEN ASKED IN THE MORNING- PT SAID THAT SHE WAS NOT ABLE TO SLEEP WELL DUE TO PAIN. WILL AWAIT FURTHER PLANS.
[2024-09-15 07:58] VITALS: BP 141/87
[2024-09-15] MEDS ORDERED: Enoxaparin 30 MG/0.3 ML SYR SC SCH (09:00)
[2024-09-15] MEDS ORDERED: cefTAZidime 2,000 MG in NS 100 ML IV SCH (09:00)
[2024-09-15] MEDS ORDERED: Ipratropium/Albuterol SulF 2.5-0.5MG/3 ML Amp ONE (14:05)
[2024-09-15] MEDS ORDERED: Ipratropium/Albuterol SulF 2.5-0.5MG/3 ML Amp INH SCH ×2 (14:15→16:05)
[2024-09-15] MEDS ORDERED: Ipratropium/Albuterol SulF 2.5-0.5MG/3 ML Amp INH PRN (14:20)
[2024-09-15 16:05] VITALS: BP 144/88
[2024-09-15] MEDS ORDERED: Albuterol 2.5 MG/3 ML VIAL INH PRN (16:05)
--- NOTE | 2024-09-15 18:32 | NUR ---
SUMMARY DR. WELLS COSULTED WITH PULM DR. GLASGOW. WHO ORDERED INCENTIVE HARVINDER, FLUTTER THERAPY, AND CHEST PHYSIOTHERAPY ON TOP OF ANTIBIOTICS. BREATHING MACHINS PROVIDED AND EDUCATED PATIENT ON USE. RT BROUGHT UP PHYSIOTHERAPY MACHINE AND DID TREATMENT. PT IND IN ROOM. SPIRITS ARE UP. ABLE TO MAKE NEEDS KNOWN. CALL LIGHT IN REACH.
[2024-09-15 21:24] VITALS: BP 126/94
[2024-09-16 04:58] VITALS: BP 132/85
--- NOTE | 2024-09-16 06:39 | NUR ---
SHIFT SUMMARY NOT MUCH CHANGES IN STATUS FROM YESTERDAY. PAIN AND OXYGENATION STILL THE SAME. TOLERATES ABX & CURRENT TX . ABLE TO SLEEP VERY WELL AFTER NIGHT PILLS + PRN MEDICATIONS, AND MOSTLY BECAUSE OF THE AIR MATTRESS. NO CONCERN OVERNIGHT.
[2024-09-16 08:05] VITALS: BP 151/96
--- NOTE | 2024-09-16 15:02 | NUR ---
SUMMARY NO ACUTE CHANGES TODAY. PT CONTINUING Q12 ANTIBIOTIC THERAPY. FLUTTER VALVE, INCENTIVE HARVINDER, CHEST PHYSIOTHERAPY AND NEBS PER RT. HAD PATIENT DEMONSTRATE HOW TO USE INCENTIVE HARVINDER AND FLUTTER VALVE, AND SHE IS DOING WELL. PRN PAIN MEDICATION GIVEN AND PRN SPASM MEDICATION GIVEN. PT PLEASANT A/OX4 AND COOPERATIVE. PT UP IN SHOWER TODAY.
[2024-09-16 15:41] VITALS: BP 145/99
[2024-09-16 19:44] VITALS: BP 148/90
[2024-09-17 03:24] VITALS: BP 127/87
--- NOTE | 2024-09-17 03:57 | NUR ---
SUMMARY: PT A/OX4, CALLS APPROPRIATELY TO SPECIFY NEEDS AND IS PLEASANT AND COOPERATIVE W/CARE. SHE'S INDEPENDENT IN ROOM AND CONTINENT TO BATHROOM AD BOBBY. PT REMAINS ON 3L O2 VIA NC PER BASELINE W/RT PROVIDING CHEST PT AND NEBS PRN. IV ABX RECEIVED PER EMAR FOR PNM AND COARSE LS AUSCULTATED T/O. MORPHINE AND METAXALONE PROVIDED PRN PER PT REQUEST FOR TOLERABLE RELIEF OF CHRONIC BACK AND SHOULDER PAIN. NO ACUTE CHANGES, VSS/AFEBRILE. WILL REPORT TO DAY RN.
[2024-09-17 06:15] LABS: Hematocrit 35.1 % (33.0-51.0); Hemoglobin 10.7 g/dL (11.5-16.0); Mean Corpuscular HGB Conc 30.5 g/dL (31.5-36.5); Mean Corpuscular Volume 97 fL (80-100); NRBC ABSOLUTE 0.00 K/mm3 (0.00-0.02); NRBC Auto 0.0 /100 WBC (0.0-0.2); Platelet Count 377 K/mm3 (150-400); RDW Coefficient Variation 13.6 % (11.7-14.2); RDW Standard Deviation 48.6 fL (35.1-46.3)
[2024-09-17 06:43] LABS: Albumin, Blood 2.7 g/dL (3.4-5.0); Anion Gap 1 mmol/L (3-11); Blood Urea Nitrogen 12 mg/dL (8-24); CO2, Blood 41 mmol/L (21-32); Calcium, Blood 8.8 mg/dL (8.5-10.1); Chloride, Blood 99 mmol/L (98-108); Creatinine, Blood 0.50 mg/dL (0.40-1.00); Glucose, Blood 84 mg/dL (70-99); Magnesium, Blood 2.0 mg/dL (1.6-2.4); Phosphorus, Blood 3.3 mg/dL (2.5-4.9); Potassium, Blood 4.2 mmol/L (3.5-5.5); Sodium, Blood 137 mmol/L (136-145)
[2024-09-17 08:03] VITALS: BP 149/88
[2024-09-17] MEDS ORDERED: cefTAZidime 2,000 MG in NS 100 ML IV SCH (16:00)
[2024-09-17 16:21] VITALS: BP 147/97
--- NOTE | 2024-09-17 17:56 | NUR ---
SUMMARY PT IV ANTIBIOTICS INCREASED TODAY. KNOWLEDGE ENGINEER ROUNDED FOR DISCHARGE PLANNING. NO ACUTE EVENTS. PRN MORPHINE AND METAXALONE GIVEN PER EMAR. IND IN ROOM. AT BEDSIDE BRIEFLY TODAY. ABLE TO MAKE NEEDS KNOWN.
[2024-09-17 20:08] VITALS: BP 151/94
[2024-09-18 03:14] VITALS: BP 151/87
--- NOTE | 2024-09-18 05:53 | NUR ---
INSPECTING ENGINEER SUMMARY NO ACUTE CHANGES. PT RECIEVED ALL SCHEDULED MEDS AND PRN FOR PAIN AND MUSCLE RELAXER. PT ABLE TO MAKE NEEDS KNOWN. PT CONTINUES TO HAVE PRODUCTIVE COUGH. CALL LIGHT ACCESSIBLE. CALLING APPROPRIATELY. CARE WILL CONTINUE UNTIL RPORT GIVEN TO ONCOMING NURSE.
[2024-09-18 07:45] VITALS: BP 136/88
--- NOTE | 2024-09-18 10:06 | NUR ---
ASSUMED CARE OF PT. A/O X 4 VERY PLEASENT AND COOPERATIVE WITH CARE PT TRANSITIONED TO ROOM AIR THIS MORNING AND HAS EVARISTO WELL SATURATION MID TO HIGH 90S. HEART RATE 105. ASSISTED TO BATHROOM, PT EVARISTO WELL HEART RATE JUMPED TO 120 BUT O2 SAT MAINTAINED HIGH 90S. CHEST PAIN ONLY NOTED WHEN PT NEEDING TO TAKE DEEP BREATHS, DR SIMPSON TO WRITE FOR ORAL PAIN MEDS IF NEEDED. TANSFER TO ICU FOR CLOSER MONIOTRING.
[2024-09-18 16:05] VITALS: BP 142/93
[2024-09-18 20:41] VITALS: BP 149/78
[2024-09-19 03:54] VITALS: BP 138/76
--- NOTE | 2024-09-19 05:24 | NUR ---
SHIFT SUMMARY A/O X4. NO ACUTE CHANGES THROUGHOUT THE SHIFT. PRN PAIN MEDICATION AND MUSCLE RELAXERS GIVEN PER EMAR. VITAL SIGNS REMAIN STABLE. PT INDEPENDENT IN THE ROOM. ALL MEDS GIVEN PER EMAR. PT CALLING APPROPRIATELY. CALL LIGHT IN REACH, BED IN LOWEST POSITION.
[2024-09-19 07:35] VITALS: BP 142/99
[2024-09-19] MEDS ORDERED: TAZICEF2 G2 IV (11:52)
[2024-09-19] MEDS ORDERED: VSL#3 112.5B1 EACH PO (11:53)
--- NOTE | 2024-09-19 14:41 | NUR ---
PT WAS DISCHARGED UNDER MD ORDERS. PT LEFT WITH D/C PACKET IN HAND. PT HAS NO QUESTIONS OR CONCERNS AT THIS TIME.
== END 2024-09-19 14:00 | disposition home health service (06) | DRG 178 ==
LOC: PCU 10:09 → MEDS 14:22
PROVIDERS: Internal Medicine; ADMIT Internal Medicine
DX: J15.1 Pneumonia due to Pseudomonas (principal); E46 Unspecified protein-calorie malnutrition; J47.0 Bronchiectasis with acute lower respiratory infection; Z68.1 Body mass index [BMI] 19.9 or less, adult; J47.1 Bronchiectasis with (acute) exacerbation; R64 Cachexia; J96.11 Chronic respiratory failure with hypoxia; M79.7 Fibromyalgia; Z66 Do not resuscitate; G89.4 Chronic pain syndrome; E03.9 Hypothyroidism, unspecified; Z99.81 Dependence on supplemental oxygen; Z79.890 Hormone replacement therapy; Z87.891 Personal history of nicotine dependence; Z79.52 Long term (current) use of systemic steroids; Z79.891 Long term (current) use of opiate analgesic
CPT/HCPCS: 80048; 80069; 83735; 85027; 94640; 94664; 94667; 94668; 94760; 94762; A9270; J0713; J1650; J7050; J7512

== ENCOUNTER 2024-11-11 17:10 | Emergency (ER) | payer OTHER ==
[~2024-11-11] VITALS: Ht 157.5 cm; Wt 42.2 kg
[~2024-11-11 17:10] MED LIST changes: +ANORO ELLIPTA1 EACH INH; +IPRAT-ALBUT 0.5-3 ML INH; +ONDA4ODT MM; +PRED20 PO; +STIOLTO RESPIMAT4 G2 INH; +TAZICEF2 G2 IV; +VSL#3 112.5B1 EACH PO
[2024-11-11 18:19] LABS: BASOPHILS ABSOLUTE AUTO 0.04 K/mm3 (0.00-0.23); BASOPHILS PERCENT AUTO 0 % (0-2); EOSINOPHILS ABSOLUTE AUTO 0.45 K/mm3 (0.00-0.68); EOSINOPHILS PERCENT AUTO 3 % (0-6); Hematocrit 41.9 % (33.0-51.0); Hemoglobin 12.2 g/dL (11.5-16.0); IMMATURE GRAN ABSOLUTE AUTO 0.06 K/mm3 (0.00-0.10); IMMATURE GRAN PERCENT AUTO 0 % (0-1); LYMPHOCYTES ABSOLUTE AUTO 1.81 K/mm3 (0.84-5.20); LYMPHOCYTES PERCENT AUTO 14 % (21-46); MONOCYTES ABSOLUTE AUTO 0.97 K/mm3 (0.16-1.47); MONOCYTES PERCENT AUTO 7 % (4-13); Mean Corpuscular HGB Conc 29.1 g/dL (31.5-36.5); Mean Corpuscular Volume 102 fL (80-100); NEUTROPHILS ABSOLUTE AUTO 10.05 K/mm3 (1.96-9.15); NEUTROPHILS PERCENT AUTO 75 % (41-73); NRBC ABSOLUTE 0.00 K/mm3 (0.00-0.02); NRBC Auto 0.0 /100 WBC (0.0-0.2); Platelet Count 468 K/mm3 (150-400); RDW Coefficient Variation 14.2 % (11.7-14.2); RDW Standard Deviation 53.4 fL (35.1-46.3)
[2024-11-11 18:58] LABS: Alanine Aminotransfer (ALT/SGP 23.0 U/L (12-78); Albumin, Blood 3.0 g/dL (3.4-5.0); Albumin/Globulin Ratio 0.6 (0.8-1.8); Anion Gap 6.0 mmol/L (3-11); Aspartate Aminotrans (AST/SGOT 25.0 U/L (12-37); Bilirubin, Total 0.3 mg/dL (0.1-1.0); Blood Urea Nitrogen 13.0 mg/dL (8-24); CO2, Blood 42.0 mmol/L (21-32); Calcium, Blood 9.3 mg/dL (8.5-10.1); Chloride, Blood 89.0 mmol/L (98-108); Creatinine, Blood 0.35 mg/dL (0.40-1.00); Globulin, Blood 4.9 g/dL (2.2-4.0); Glucose, Blood 140.0 mg/dL (70-99); Potassium, Blood 4.0 mmol/L (3.5-5.5); Sodium, Blood 133.0 mmol/L (136-145); Thyroid Stimulating Hormone 46.1 uIU/mL (0.360-4.800); Total Protein, Blood 7.9 g/dL (6.4-8.2)
[2024-11-11] MEDS ORDERED: Ipratropium/Albuterol SulF 2.5-0.5MG/3 ML Amp INH ONE (21:05)
[2024-11-11 22:32] LABS: Source, Urine Clean Catch
[2024-11-11 22:36] LABS: Bilirubin, Urine Neg (Neg); Glucose Qualitative, Urine 1+ (Neg); Ketones, Urine Neg (Neg); Leukocyte Esterase, Urine Neg (Neg); Protein, Urine 2+ (Neg); Specific Gravity, Urine 1.010 (1.003-1.022); Urobilinogen, Urine NORM (Normal)
[2024-11-11 22:48] LABS: Color, Urine Yellow (P-Yellow)
[2024-11-11 22:49] LABS: Red Blood Cells, Urine Not Seen /hpf (0-2); White Blood Cells, Urine Not Seen /hpf (0-5)
[2024-11-11] MEDS ORDERED: DOXY100 PO (22:58)
[2024-11-11] MEDS ORDERED: AMOCLA875 PO (22:58)
[2024-11-11 23:07] VITALS: BP 173/86
== END 2024-11-11 23:19 | disposition home or self-care (01) ==
LOC: ER 17:10
PROVIDERS: Student in an Organized Health Care Education/Training Program
DX: J18.9 Pneumonia, unspecified organism (principal); J44.0 Chronic obstructive pulmonary disease with (acute) lower respiratory infection; E03.9 Hypothyroidism, unspecified; T38.1X6A Underdosing of thyroid hormones and substitutes, initial encounter; K21.9 Gastro-esophageal reflux disease without esophagitis; Z99.81 Dependence on supplemental oxygen; Z79.52 Long term (current) use of systemic steroids; Z79.890 Hormone replacement therapy; Z79.899 Other long term (current) drug therapy
CPT/HCPCS: 70450; 71045; 80053; 81001; 82947; 84439; 84443; 85025; 93005; 93010; 96374; 99285-25; A9270; J2919; P9612